=== PATIENT | male | born 1945 | race Caucasian/White ===

== ENCOUNTER 2024-08-31 10:24 | Emergency (ER) | payer SELFPAY ==
[2024-08-31 10:37] VITALS: PULSE 100; PULSE 40
[2024-08-31 10:40] VITALS: PULSE 36; RESP 0
[2024-08-31 10:50] VITALS: PULSE 0; RESP 0
--- NOTE | 2024-08-31 11:12 | ED.GENADUL_ITS ---
Discharge Plan Disposition Patient Disposition: Discharge Details Chief Complaint: CodeBlue Clinical Impression: Cardiac arrest Primary Care Provider: Unknown,Unknown ED Provider: Jacqueline Pendleton General Mode of arrival: EMS . Date/Time Provider Initiated Documentation: 08/31/24 11:05 . Limitations to Documentation: altered mental status . Information obtained by: family and EMS . HPI Narrative: HPI: This is an 79-year-old male patient without known past medical history who was brought in by EMS as a cardiac arrest. The patient was in the company of his family member, came into the house and had a sudden collapse. At the time the EMS arrived he was found to be pulseless, apneic, and a coarse ventricular fibrillation. Prior to arrival at our facility the patient had numerous defibrillations (estimated 5-6) as well as a dual sequential defibrillation. He received 8 doses of epinephrine, 300 mg of amiodarone, and after the dual sequential his rhythm was noted to change to a wide complex PEA. He did have a dose of atropine in the prehospital environment with a slight improvement in his rate. The patient has an Igel in place and has been ventilated adequately with an end- tidal CO2 of 20-38. Access through an IO was obtained prehospitally. On arrival the patient remains in PEA, CPR ongoing. Collateral information was able to be obtained from the patient's significant other. She reports that the patient has avoided doctors for his whole life, deals with chronic low back pain and tends to use only herbal supplements. He does not take any prescription medications. He has not been complaining of any specific chest pain, shortness of breath, recent illness or injury, though has expressed to family member several times that he feels ready to , states that he would not want to be resuscitated or kept alive mechanically. Exam: Gen: Unresponsive HEENT: Pupils fixed and nonreactive Neck: Supple Lungs: Apneic, mechanically ventilated, coarse breath sounds CV: Pulseless, CPR in progress, strong femoral pulses with CPR Abdomen: Distended, soft MSK: No obvious extremity abnormalities Skin: Visualized skin without lesions, cool to touch of the extremities Neuro: GCS 3 MDM: This is an 79-year-old male patient presenting in cardiac arrest. My differential includes but is not limited to presumed cardiac etiology given the persistent ventricular dysrhythmia/ventricular storm, likely ACS, considered aortic dissection, considered massive pulmonary embolism. The patient has no known history of renal dysfunction to put him at risk for life-threatening electrolyte derangements, per family did not have any trauma that would suggest traumatic arrest. CPR was continued and the compressions were ultimately converted to mechanical to avoid provider fatigue. Igel functioning well, with some pink bubbly sputum but good end-tidal in the 30s with ventilation. The patient was given an additional dose of epinephrine at the next pulse check, which did show a wide- complex PEA. Bedside ultrasound utilized for pulse checks, showing minimal cardiac wall motion. During resuscitation, the patient's family member arrived at bedside. She expressed to this provider that the patient had for a long time stated that he would never want to be kept alive on machines, and that if he could speak for himself he would desire cessation of resuscitative efforts. Given that this patient has had greater than 45 minutes of excellent ACLS and BLS CPR, with decompensation of his rhythm to a wide-complex PEA, with no early avenue to a facility that could provide PCI or ECMO, I do feel that ongoing resuscitation is approaching futility. I did express to the family member that with medications such as epinephrine and pressors the patient's heart rate and contractility could be supported to the point where he would no longer require compressions, but the family states that this would be outside of the patient's wishes and not consistent with his goals of care. There is no formal documentation of DNR/DNI, but at this time given the futility of medical efforts, the clear desires of the patient as voiced by the family, the decision was made with the medical team to cease resuscitative efforts. Time of was called at 10:44 AM. Jacqueline Pendleton MD ED Course: General Stated Complaint: CodeBlue ARIADNA: 1 Medical Decision Making Quality:SDOH Health Related Social Needs: No Data to Display Critical Care Time Critical Care Time Critical Care Time: Yes Total Critical Care Time: 35 Attestation: Upon my evaluation, this patient had a high probability of imminent or life- threatening deterioration due to cardiac arrest, which required my direct attention, intervention, and personal management. I have personally provided 35 minutes of critical care time exclusive of time spent on separately billable procedures. Time includes review of laboratory data, radiology results, discussion with consultants, and monitoring for potential decompensation. Interventions were performed as documented above. Jacqueline Pendleton MD PFSH All Active Problems (Updated 08/31/24 @ 14:56 by Jacqueline Pendleton MD) Cardiac arrest (Acute) Social History Smoking risk assessment performed?: No Additional Social history: unable to get any history, Pt arrives w/CPR in progress.
== END 2024-08-31 14:56 | disposition expired ==
PROVIDERS: Emergency Provider Emergency Medicine
DX: I46.9 Cardiac arrest, cause unspecified (principal)
CPT/HCPCS: 92950; 99291